=== PATIENT | male | born 1950 | race Caucasian/White ===

== ENCOUNTER → 2018-01-13 12:50 | Outpatient (CLI) | payer MEDICARE, OTHER, SELFPAY ==
--- NOTE | 2018-01-13 13:00 | VDLE_ITS ---
Reason For Study: PAIN Procedure LEFT Exam performed in department. GSV is normal. A preliminary report was called and/or CFV is compressible, spontaneous, phasic, faxed to DR STOVER. competent, and demonstrates normal augmentation. FV is compressible, spontaneous, phasic, competent and demonstrates normal augmentation. POP V is compressible, spontaneous, phasic, competent and demonstrates normal augmentation. T/P Trunk is compressible. PTV is compressible. LT PerV is compressible. There is a nonvascularized, nonechogenic structure measuring 1.8 x 1.3 cm noted in the popliteal region. Interpretation Summary Deep veins of the left lower extremity are patent and compressible segmentally. There is no evidence of left lower extremity deep vein thrombosis. Valvular competence appears intact within the proximal deep venous system on the left . The left greater saphenous vein appears patent and compressible segmentally. A non-vascular, hypoechoic structure is noted in the left popliteal space, measuring 1.8 cm x 1.3 cm. This probably represents a popliteal cyst. Clinical correlation is advised. Ordering Physician: Ashu Stover Referring Physician: Ashu Stover Performed By: Hannah Garcia, IDALMIS, RVT
== END ==
PROVIDERS: Family Provider Family Medicine; PCP Family Medicine; Visit Provider Family Medicine
DX: M79.605 Pain in left leg (principal)
CPT/HCPCS: 93971

== ENCOUNTER → 2021-01-13 14:18 | Outpatient (CLI) | payer MEDICARE, OTHER, SELFPAY ==
[2016-10-21 18:46] VITALS: BMI 29.2
== END ==
PROVIDERS: PCP Preventive Medicine Occupational Medicine; Referring Provider Preventive Medicine Occupational Medicine; Visit Provider Preventive Medicine Occupational Medicine
DX: U07.1 COVID-19 (principal)
CPT/HCPCS: 36415; 86769

== ENCOUNTER 2021-05-07 08:30 | Outpatient (RCR) | payer MEDICARE, OTHER, SELFPAY ==
--- NOTE | 2021-03-07 13:33 | HP.PTEVAL_ITS ---
Patient's Visit Information FLORENCE WESTON is a 70 year old M referred to Physical Therapy by Dr. Attila Lewis MD with a diagnosis of S/P POST LAMINECTOMY WITH SPINAL FUSION ,FOOT DROP LEFT. Date of Evaluation: 03/07/21 Physical Therapist: Liu Chavez, PT, Cert MDT, OCS - Visit Plan Frequency: 1x/Week Duration: 4 Weeks Plan: PT INTERVENTIONS ANKLE STRENGTHENING ,FLEAXABLITY ,CORE STRENGTH ,LEFT QUADS/HAMS/HIP STRENGTHENING ,AND NMES - Subjective This 70 y/o male presents to physical therapy with s/p laminectomy with spinal spinal fusion with foot drop. Patient had s/p laminectomy with fusion L4-[address] Eng at [facility]. Patient developed foot drop left placed in AFO May last year. Patient prior to surgery had left leg pain for ~ 6 months. MRI showed stenosis. Patient has had prior PT [place] and [place] [facility] . Focused on strengthening and balance. Return seen DR Eng recommended PT and nerve conduction. Patient reports some back pain and no leg pain. Patient has paresthesia left foot, absent light touch dorsal aspect . Aggravating factors lumbar morning, walking and standing numbness is unaffected. Alleviating factors rest ,moving. Patient pain affects sleeping. Bowel/bladder-.Coughing sneezing -. Patient is very active nd hobbies. Patient symptoms affects ADL's and job demands along with hobbies. No MEDS ,x-rays looked . VOCATION: . SOCIAL: Rental properties - Pain Bilateral Back Pain Intensity (Out of 10): 2 Pain Intensity Range: 10 - Objective POSTURE: mild forward posture AFO LEFT. PALAPTION: unremarkable. NEURO: C/O paresthesia/tingling right foot .absent light touch ,reflexes L3-4,L4-5,L5-S1 1/3. GAIT: reciprocal pattern with foot drop left side with AFO. LUMBAR ROM : flexion min loss ,extension mod loss, side glides mod loss. FLEXABLITY: hams WFL. MMT: left quads 4-/5,hams 4/5 ,hip flexion 4-/5,ankle dorsiflexion 2/3,plantarflexion 3/5,eversion 2/3,inversion 2+/5 - Special Tests L/S Slump test left side: Negative L/S Slump test right side: Negative L/S Left Straight Leg Raise: Negative L/S Right Straight Leg Raise: Negative - Balance/Special Test Scores Oswestry Low Back Score: 21 - Goals Goal 1:: I with HEP for strengthening Goal Time Frame: 4-6 Weeks Goal 2:: Improve gait with increase dorsiflexion community distances Goal Time Frame: 4-6 Weeks Goal 3:: Patient increase strength ankle 3/5 grade and quads 4/5 to improve gait Goal Time Frame: 4-6 Weeks Goal 4:: Patient to increase back owesrty score by 5 points to improve function Goal Time Frame: 4-6 Weeks - Rehabilitation Potential Physical Therapy Diagnosis: This patient under s/p laminectomy with fusion L4-5 fusion last Jan. with major issue weakness ankle and quads with AFO left impairs function and gait along with core weakness this benefit from skilled PT Rehabilitation Potential: Good - Anticipated Interventions Patient/Client Instruction: Educate patient on: Condition, Plan of Care For the Purpose of:: To decrease pain, To increase ROM, To improve muscle performance and motor function, To improve ability to perform ADL's, To increase tolerance to activity/condition/position, To improve ability of physical actions for home/community/work/leisure, To improve health of tissue, To decrease soft tissue restriction, To increase flexibility/ROM, To improve self management Therapeutic Exercise to Include: Strength training, Endurance training, Balance training, Postural training, Flexibilty training, Gait and locomotor training, Dynamic Lumbar Stabilization For the Purpose of:: To decrease pain, To increase ROM, To improve muscle performance and motor function, To improve ability to perform ADL's, To increase tolerance to activity/condition/position, To improve ability of physical actions for home/community/work/leisure, To improve health of tissue, To decrease soft tissue restriction, To increase flexibility/ROM, To prevent re-injury Functional electric stimulation: Yes Cryotherapy (ice pack, ice massage): Yes For the Purpose of:: To decrease pain, To increase ROM, To improve muscle performance and motor function, To increase tolerance to activity/condition/position, To improve ability of physical actions for home/community/work/leisure, To improve gait and locomotor functions Thank you for the opportunity to evaluate your patient. For Medicare and Medicare HMO plans, please review the plan of care and approve it. It will need to be FAXED BACK to us at [phone] for Medicare purposes. For Medicare only, by signing this I certify the plan of care. Please let me know if there are questions or concerns regarding this plan of care. Physician Signature: Date:
--- NOTE | 2021-05-07 09:15 | HP.PTDCSUM ---
It has been my pleasure to treat FLORENCE WESTON referred by Dr. Attila Lewis MD, with the diagnosis of S/P POST LAMINECTOMY WITH SPINAL FUSION ,FOOT DROP LEFT for a total of 9 visit(s). Discharge Date: 05/07/21 Please see the following information for a summary of their discharge status. Subjective: Doing okay not much change Bilateral Back Pain Intensity (Out of 10): 3 % Improvement: 25 Objective/Function: GAIT: RECIPROCAL PATTERN MILD FOOT SLAP. MMT: quads/hams 4/5,hip flexion 4-/5,anterior tibials 1/5. LUMBAR ROM: flexion min loss ,extension mod loss Goal 1:: I with HEP for strengthening Goal 2:: Improve gait with increase dorsiflexion community distances Goal 3:: Patient increase strength ankle 3/5 grade and quads 4/5 to improve gait Goal 4:: Patient to increase back owesrty score by 5 points to improve function Plan: D/C Discharge Comments: HEP If there are questions or concerns regarding this patient's physical therapy, please feel free to call me at [phone]. Thank you for the referral of this patient. Sincerely, Liu Chavez, PT, Cert MDT, OCS Balance/Gait/Functional tests - Balance/Special Test Scores Oswestry Low Back Score: 8
== END 2021-05-07 19:00 | disposition home or self-care (01) ==
LOC: PT 08:30
PROVIDERS: PCP Preventive Medicine Occupational Medicine; Referring Provider Orthopaedic Surgery Orthopaedic Surgery of the Spine; Visit Provider Orthopaedic Surgery Orthopaedic Surgery of the Spine
DX: M21.372 Foot drop, left foot (principal); Z98.1 Arthrodesis status
CPT/HCPCS: 97110; 97162

== ENCOUNTER → 2022-04-21 | Outpatient (CLI) | payer MEDICARE, OTHER, SELFPAY ==
--- NOTE | 2022-04-21 06:34 | MRI_ITS ---
STUDY: MRI BRAIN WITH AND WITHOUT CONTRAST (ATTENTION INTERNAL AUDITORY CANALS - I.A.C.''s) REASON FOR EXAM: Male, 71 years old. HEARING LOSS- BILAT TECHNIQUE: Standardized multiplanar fat and water weighted pulse sequences were obtained. ml of 19ml Clariscan contrast material was administered intravenously for the contrast portion of the examination. COMPARISON: None. FINDINGS: Normal bilateral temporal bones. Normal bilateral internal auditory canals. There is no demonstrated intracanalicular or cisternal vestibular schwannoma (acoustic neuroma). There is no enhancement of the bilateral VIIth or VIIIth cranial nerves. Normal bilateral cochlea, vestibules and semicircular canals. No visualized MONDINI''s malformation or cerebellar pontine angle mass or cyst. No demonstrated nerve root enlargement or nodularity within the IACs. There is mild cerebral atrophy with widening of the extra-axial spaces and ventricular dilatation. There are a limited number of small white matter hyperintensities, distributed throughout the deep white matter tracts of the cerebral hemispheres, consistent with mild chronic white matter ischemic changes. There is no evidence for recent intracranial ischemia or other cause of cytotoxic edema on diffusion weighted imaging (DWI). Normal T2* images of the brain without demonstrated susceptibility artifact. There is no demonstrated hemosiderin stain. There are no demyelinating plagues of the supratentorial brain, brainstem or cerebellum. There are no findings suspicious for multiple sclerosis (MS). Normal bilateral basal ganglia. Normal thalami. Normal flow voids within the major intracranial circulation suggesting patency by spin echo criteria. Normal venous enhancement. There is no enhancing intra-axial or extra-axial abnormality. No brain parenchymal lesions or abnormal enhancement is seen. No abnormal thickening or enhancement of meninges or dura is demonstrated on the current study. There is no extra-axial fluid accumulation. Normal sella turcica, pituitary gland, infundibular stalk, optic chiasm and hypothalamus. Normal tectal plate and pineal gland. Normal midbrain, mita and medulla. Normal cerebellum. Normal basal cisterns. No demonstrated orbital abnormality, within the constraints of a routine brain study. Normal visualized paranasal sinuses. Normal calvarium and skull base. Normal visualized soft tissue structures. Normal visualized upper cervical spine. MRI/Brain W/WO Contrast IMPRESSION: 1. Normal unenhanced and enhanced MRI of the bilateral internal auditory canals (I.A.C''s). 2. Involutional and minor chronic ischemic changes of the brain, as described above. Electronically Signed: Juan C Pendleton MD at 15:25 EST ,
[2022-04-21 07:05] LABS: EGFR FINGERSTICK > 60.0000 mL/min (>60)
== END | disposition home or self-care (01) ==
PROVIDERS: PCP Preventive Medicine Occupational Medicine; Referring Provider Otolaryngology; Visit Provider Otolaryngology
DX: H91.93 Unspecified hearing loss, bilateral (principal)
CPT/HCPCS: 70553; A9575

== ENCOUNTER → 2023-02-10 | Outpatient (CLI) | payer MEDICARE, OTHER, SELFPAY ==
--- NOTE | 2023-02-10 12:17 | EKG12_ITS ---
Test Reason : PRE OP Blood Pressure : / mmHG Vent. Rate : 058 BPM Atrial Rate : 058 BPM P-R Int : 160 ms QRS Dur : 094 ms QT Int : 432 ms P-R-T Axes : 065 -12 061 degrees QTc Int : 424 ms Sinus bradycardia with Premature atrial complexes Otherwise normal ECG Confirmed by MARIANELA FARAH, GERMAN ([id number]), purchase request editor MEDARDO ELLIOTT ([id number]) on 02/12/2023 11:38:29 AM Referred By: Romie Irene Confirmed By:VITALY BEAR MD
[2023-02-10 13:15] LABS: Hematocrit 33.5 % (40-54); Hemoglobin 10.5 g/dL (13.0-16.5); Mean Corp Hgb Conc 31.3 g/dL (32-36); Mean Corpuscular Hgb 30.1 pg (27.0-32.0); Mean Platelet Vol. 10.5 fl (6.2-12.0); Platelet Count 267 K/mm3 (150-450); RBC Distribution Width CV 13.9 % (11.6-14.6); RBC Distribution Width SD 49.1 fl (35.1-43.9); Red Blood Count 3.49 M/mm3 (4.6-6.2); White Blood Count 4.2 K/mm3 (4.4-11.0)
[2023-02-10 13:44] LABS: Anion Gap 4 (5-15); BUN 35 mg/dL (7-18); BUN/Creat Ratio 23.6 RATIO (10-20); Calcium,Total 8.8 mg/dL (8.5-10.1); Chloride 107 mmol/L (98-107); Creatinine, Serum 1.48 mg/dL (0.70-1.30); EST Glomerular Filtration Rate 49 mL/min (>60); Est Glom Filt Rate - Afr Amer 60 mL/min (>60); Glucose 135 mg/dL (74-106); Sodium Level 138 mmol/L (136-145)
== END | disposition home or self-care (01) ==
LOC: PSN 12:17
PROVIDERS: PCP Preventive Medicine Occupational Medicine; Referring Provider Otolaryngology; Visit Provider Otolaryngology
DX: Z01.810 Encounter for preprocedural cardiovascular examination (principal); Z01.812 Encounter for preprocedural laboratory examination
CPT/HCPCS: 36415; 80048; 85027; 93005

== ENCOUNTER 2023-12-05 17:09 | Emergency (ER) | payer MEDICARE, OTHER, SELFPAY ==
[2023-12-05 17:10] VITALS: BP 152/60; PULSE 67; RESP 15; TEMP 36.7; O2SAT 100; BMI 28.7
--- NOTE | 2023-12-05 18:06 | CT_ITS ---
We are attempting to reach an attending provider to discuss findings. An addendum with communication details will be sent when the communication is complete. STUDY: CT BRAIN WITHOUT CONTRAST REASON FOR EXAM: Male, 73 years old. headache Individualized dose optimization techniques were used for this CT. TECHNIQUE: Transaxial CT imaging of the brain was performed without administration of intravenous contrast material. COMPARISON: 04.21.22 MRI FINDINGS: There are calcifications around the carotid artery. These are noted in the cavernous carotid arteries. Normal calvarium. Normal soft tissues. There is mild cerebral atrophy with widening of the extra-axial spaces and ventricular dilatation. There are areas of decreased attenuation within the white matter tracts of the supratentorial brain, consistent with microvascular disease changes. Normal basal ganglia and thalami. Normal brainstem. There is mild cerebellar atrophy. Right cerebral subdural hematoma measuring 22 mm in greatest width. 11 mm right to left midline shift. Hyperdense fluid along the tentorium cerebelli suggesting blood. There are no findings of an acute ischemic infarction. Normal visualized paranasal sinuses. CT/Brain/Head without Contrast IMPRESSION: Right cerebral subdural hematoma and blood along the tentorium cerebelli. Electronically Signed: Tru Christianson MD at 19:04 EDT ,
--- NOTE | 2023-12-05 18:07 | EDS_ITS ---
HPI History of Present Illness Chief Complaint: Headache Informant: patient Onset/Context/Timing Onset: Days Context: Gradual Timing: Continuous Quality -Headache: Negative for Similar Prior Headaches Current Severity: Mild Maximum Severity: Moderate Associated Symptoms/Injury Associated Symptoms: Negative for Fever, Nausea, Vomiting, Sore Throat, Sinus Pressure, Numbness, Tingling, Preceding Aura, Visual Changes, Blurred Vision, Photophobia or Visual Loss Injury - OCHOA: Negative for Direct Trauma, Fall or Assault Narrative Narrative: 73-year-old male history diabetes, renal insufficiency anemia. Today headache for about a week. Says been trying to get a lot of things done at home and with rentals because he will be going out of town. He said he has had a dull headache is basically throughout his entire head for a week. He is tried Tylenol, ibuprofen and Aleve without any significant relief. He is not on blood thinners. He denies any significant sinus congestion. No head trauma or falls. No fever or neck pain. He typically does not get headaches. Prior similar symptoms: No Recent Illness/Hospitalization: No [facility] Home Medications ?Medication ?Instructions ?Recorded ?Last Taken ?Type aspirin 81 mg chewable tablet 81 mg PO DAILY 10/21/16 Unknown History canagliflozin 300 mg tablet 300 mg PO DAILY 10/21/16 Unknown History (Invokana) enalapril maleate 10 mg tablet 10 mg PO DAILY 10/21/16 Unknown History metformin 1,000 mg tablet 1,000 mg PO BIDCM 10/21/16 Unknown History pioglitazone 30 mg tablet 30 mg PO DAILY 10/21/16 Unknown History repaglinide 2 mg tablet 2 mg PO BID 10/21/16 Unknown History simvastatin 20 mg tablet 20 mg PO QHS 10/21/16 Unknown History Allergy/AdvReac Type Severity Reaction Status Date / Time No Known Allergies Allergy Verified 12/05/23 17:12 Social History Smoking Status: Never smoker ROS ROS ED ROS Narrative Headache. Denies nausea, vomiting, diarrhea. Denies fever. Review of Systems ROS Unobtainable: Denies due to encephalopathy Constitutional Constitutional ED: Denies chills or fever(s) Eyes Eyes: Denies blurry vision Cardiovascular Cardiovascular: Denies chest pain Respiratory/Chest Respiratory/Chest: Denies cough or dyspnea Gastrointestinal Gastrointestinal: Denies abdominal pain, nausea or vomiting Genitourinary Genitourinary ED: Denies dysuria or hematuria Musculoskeletal Musculoskeletal: Denies arthralgias Integumentary Denies abscess Neurologic Neurologic: Reports headache(s); Denies paresthesias or weakness Psychiatric Psychiatric: Denies anxiety or depression Endocrine Endocrinology: Denies polydipsia Hematologic/Lymphatic Hematologic/Lymphatic: Denies easy bleeding Allergic/Immunologic Allergic/Immunologic ED: Denies mouth swelling, tongue swelling or urticaria EXAM Physical Exam Narrative Exam Narrative: Well-appearing 73-year-old male. Vital signs stable afebrile. Pulse ox 9% room air no signs hypoxia. H EENT exam pupils are reactive to light. Extra motions are intact. No facial droop. Normal speech. No trauma. No tenderness. Neck nontender no lymphadenopathy. No meningismus. Lungs clear to auscultation bilateral. Heart regular rate and rhythm no murmur. Abdomen soft nontender. Moving all 4 extremities. 5-5 mud analysis well logging captain strength. Dorsi plantarflexion intact. Fingertip to nose within normal limits. Neurologic exam normal. NIH 0. He is awake and alert. Answering questions following commands. Const Vital Signs: 12/05/23 17:10 12/05/23 19:10 12/05/23 21:00 Temperature 98.1 F Temperature Source Temporal Pulse Rate 67 78 71 Respiratory Rate 15 17 17 Blood Pressure 152/60 H 173/71 H Blood Pressure Mean 90 105 Pulse Ox 100 100 99 Oxygen Delivery Method Room Air Room Air Room Air Positive well nourished and well developed; Negative for obese, cachectic, contractures or unkempt General Appearance ED: well developed and NAD; Negative for unkempt, cachectic, contractures, cyanotic, diaphoretic or pallor Nutritional Appearance: Negative for cachectic or obese HEENT Reports normocephalic and moist mucous membranes atraumatic; Negative for trauma, tenderness, temporal artery tenderness or vesicular rash Face and Sinus: Negative for sinus tenderness Eyes PERRL and EOMs intact bilaterally General Eye ED: Negative for pale conjunctiva or scleral icterus Neck no lymphadenopathy, supple, no meningeal signs and no JVD General: Negative for tenderness Resp normal respiratory effort and clear to auscultation bilaterally Effort and Inspection: Negative for retractions Auscultation: Negative for rales, rhonchi, wheezes or diminished lung sounds Cardio regular rate, regular rhythm, S1 normal heart sound, S2 normal heart sound and no murmurs Rate: Negative for bradycardia or tachycardic Rhythm: Negative for abnormal rhythm GI non-tender and non-distended Auscultation: normoactive bowel sounds Palpation: soft; Negative for firm, tender, guarding or rigid Back/Spine no CVA tenderness General Back: Negative for CVA tenderness Cervical Spine: Negative for cervical spine tenderness Thoracic Spine / Upper Back: Negative for thoracic spinal tenderness Lumbar Spine / Lower Back: Negative for lumbar spinal tenderness Extremity normal to inspection and full ROM General Extremety ED: Negative for edema or tenderness General Extremity: Negative for edema Neuro oriented x3 and CN's II-XII intact bilaterally Sensorium / Orientation: awake, alert, oriented to person, oriented to place and oriented to time; Negative for orientation impaired, lethargic or stuporous Coordination / Balance: [id number] test normal Speech: speech normal Motor Exam: strength 5/5 throughout Psych mental status grossly normal Appearance: Negative for unkempt Attitude: No agitated Mood & Affect: Negative for depressed, anxious or tearful Skin General Skin Exam: Negative for jaundice or pallor Lesions: no lesions Rashes: no rashes Trauma: Negative for abrasion MDM MDM MDM Narrative Medical decision making narrative: 73-year-old male complaining of a weeklong worth of a headache. Typically does not get headaches. No fall or trauma. No blood thinners. Neurologic exam lying in bed is normal. NIH 0. CAT scan to be obtained. He has had a history of diabetes and renal insufficiency I will check some screening labs. Will treat with IV fluids. Currently he says the headache is mild he does not need anything for pain. He is not having any nausea. Repeat exam patient did have a fall a month ago. I think he has an acute on chronic subdural. Currently he is stable. I spoke to both he and his . I am working on transfer him to go to [facility]. Currently his exam is unchanged. His neurologic exam remains normal in bed. I have not attempted to walk him. History & Record Review Discussion w/independent historian: Patient and Family Additional record(s) reviewed:: Prior inpatient record, Prior outpatient record, Prior ED visit, Prior labs, No prior records and Other Lab Data Attestation: I reviewed the patient's lab results. Lab results narrative: CBC shows a white count 8.2. H&H 10.5 and 34. Platelets 253. PT, INR and PTT are normal at 13, 1 and 29. Electrolytes are unremarkable. Gap 5. BUN of 33 creatinine 1.37. Glucose 214. CAT scan of the brain shows acute on chronic right cerebral subdural hematoma with blood along the tentorium of the cerebelli. There is right to left shift. Labs: Laboratory Results - last 24 hr 12/05/23 12/05/23 18:27 18:59 WBC 8.2 RBC 3.55 L Hgb 10.5 L Hct 34.0 L MCV 95.8 H MCH 29.6 MCHC 30.9 L RDW Std Deviation 49.1 H RDW Coeff of Nereida 13.9 Plt Count 253 MPV 10.3 PT 13.5 INR 1.0 APTT 29.5 Sodium 137 Potassium 4.8 Chloride 107 Carbon Dioxide 25.0 Anion Gap 5 BUN 33 H Creatinine 1.37 H Estim Creat Clear Calc 53.59 Est GFR (MDRD) Af Amer 65 Est GFR (MDRD) Non-Af 54 L BUN/Creatinine Ratio 24.1 H Glucose 214 H Calcium 8.4 L Radiography Diagnostic Testing: Clinical Impression(s) from Imaging Studies Brain CT 12/05/23 18:06 IMPRESSION: Right cerebral subdural hematoma and blood along the tentorium cerebelli. Electronically Signed: Tru Christianson MD at 19:04 EDT , ADDENDUM: 12/05/23 1917 IMPRESSION: Right cerebral subdural hematoma and blood along the tentorium cerebelli. N.B. : The above Results were Read Back by Tru Christianson MD to Geoff Wallace MD, and understanding confirmed on 12/05/2023 19:10:47 (ET). Electronically Signed: Tru Christianson MD at 19:04 EDT , Critical Care Time Critical Care Time: Yes Critical care time (excluding procedures): 30-74 minutes, Including time spent:, Discussing w/Patient &/or Family/Putty Maker, Discussing w/Consultants, Arranging Admission or Transfer, Performing Direct Patient Care at Bedside and - (35 min) Discharge Plan Triage Chief Complaint: Headache ED Provider: Geoff Wallace Dx/Rx/DC Orders Clinical Impression: Acute on chronic intracranial subdural hematoma, Headache, Chronic anemia, Chronic kidney insufficiency, History of diabetes mellitus Prescriptions: No Action repaglinide 2 MG tablet 2 mg PO BID Patient Comments: enalapril maleate 10 MG tablet 10 mg PO DAILY simvastatin 20 MG tablet 20 mg PO QHS metformin 1,000 MG tablet 1,000 mg PO BIDCM aspirin 81 MG tablet,chewable 81 mg PO DAILY pioglitazone 30 MG tablet 30 mg PO DAILY canagliflozin [Invokana] 300 MG tablet 300 mg PO DAILY Patient Comments: Primary Care Provider: Gilson Borden Referrals: Gilson Borden DO [Primary Care Provider] - Print Language: Polish Disposition Disposition: Acute Care Hospital
[2023-12-05] MEDS: 0.9% Normal Saline (1000mL) 1,000 ML 1000 ML IV (18:32)
[2023-12-05 18:34] LABS: Hemoglobin 10.5 g/dL (13.0-16.5); Mean Corp Hgb Conc 30.9 g/dL (32-36); Mean Corpuscular Hgb 29.6 pg (27.0-32.0); Mean Corpuscular Volume 95.8 fL (80-94); Mean Platelet Vol. 10.3 fl (6.2-12.0); Platelet Count 253 K/mm3 (150-450); RBC Distribution Width CV 13.9 % (11.6-14.6); RBC Distribution Width SD 49.1 fl (35.1-43.9); Red Blood Count 3.55 M/mm3 (4.6-6.2); White Blood Count 8.2 K/mm3 (4.4-11.0)
[2023-12-05 18:47] LABS: Anion Gap 5 (5-15); BUN 33 mg/dL (7-18); BUN/Creat Ratio 24.1 RATIO (10-20); Calcium,Total 8.4 mg/dL (8.5-10.1); Chloride 107 mmol/L (98-107); Creatinine, Serum 1.37 mg/dL (0.70-1.30); EST Glomerular Filtration Rate 54 mL/min (>60); Est Glom Filt Rate - Afr Amer 65 mL/min (>60); Estimated Creatinine Clearance 53.59 ml/min; Glucose 214 mg/dL (74-106); Potassium 4.8 mmol/L (3.5-5.1); Sodium Level 137 mmol/L (136-145)
[2023-12-05 19:10] VITALS: BP 173/71; PULSE 78; RESP 17; O2SAT 100
[2023-12-05 19:29] LABS: Prothrombin Time (Protime)PT. 13.5 SECONDS (11.7-14.9)
[2023-12-05 19:30] LABS: Partial Thromboplast Time 29.5 Seconds (24.1-36.2)
[2023-12-05 21:00] VITALS: PULSE 71; RESP 17; O2SAT 99
[2023-12-05 22:07] VITALS: BP 171/75; PULSE 75; RESP 12; O2SAT 99
[2023-12-05 23:03] VITALS: BP 171/75; PULSE 75; RESP 12; TEMP 36.1; O2SAT 99
--- NOTE | 2023-12-05 23:11 | ED.RN ---
Nurse to nurse report called to Neuro ICU to nurse YUVAL Darnell.
== END 2023-12-05 23:06 | disposition short-term general hospital (02) ==
PROVIDERS: Emergency Provider Emergency Medicine; PCP Preventive Medicine Occupational Medicine; Visit Provider Emergency Medicine
DX: S06.5X0A Traumatic subdural hemorrhage without loss of consciousness, initial encounter (principal); E11.22 Type 2 diabetes mellitus with diabetic chronic kidney disease; N18.9 Chronic kidney disease, unspecified; D64.9 Anemia, unspecified; Z79.82 Long term (current) use of aspirin; Z79.84 Long term (current) use of oral hypoglycemic drugs; Z79.899 Other long term (current) drug therapy
CPT/HCPCS: 70450; 80048; 85027; 85610; 85730; 96360; 99283; J7030; A4216

== ENCOUNTER 2024-02-07 08:58 | Emergency (ER) | payer MEDICARE, OTHER, SELFPAY ==
[2024-02-07] VITALS (7 sets, daily range): BP systolic 113–174; BP diastolic 61–92; PULSE 55–69; RESP 16–18; TEMP 36–36.4; O2SAT 94–100; BMI 29.0
--- NOTE | 2024-02-07 09:30 | CT_ITS ---
STUDY: CT BRAIN WITHOUT CONTRAST REASON FOR EXAM: Male, 73 years old. Abrupt headache, recent subdural hematoma RADIATION DOSAGE (If Supplied By Facility): CTDIvol = ( 44.99 ) mGy, DLP = ( 829.85 ) mGycm TECHNIQUE: Transaxial CT imaging of the brain was performed without administration of intravenous contrast material. Individualized dose optimization techniques were used for this CT. COMPARISON: Comparison is made with prior study December 05, 2023. FINDINGS: Normal soft tissue structures. There is evidence of prior valerie hole involving the right posterior frontal and parietal bones. There is evidence of a small acute subdural hematoma overlying the right frontoparietal lobes. This has decreased in size as compared to prior study. No significant midline shift is seen. There is mild cerebral atrophy with widening of the extra-axial spaces and ventricular dilatation. Normal white matter tracts of the cerebral hemispheres. Normal basal ganglia and thalami. Normal brainstem. Normal cerebellum. There are no findings of an acute ischemic infarction. Normal visualized paranasal sinuses. CT/Brain/Head without Contrast IMPRESSION: Acute on chronic right subdural hematoma as described. This has decreased in size as compared to prior study. Electronically Signed: Javier Martino MD at 10:01 EDT ,
--- NOTE | 2024-02-07 11:48 | EX.ED.VIS.HA ---
HPI History of Present Illness Chief Complaint: Headache Detail of Chief Complaint: Acute global headache Informant: patient and spouse/S.O. Onset/Context/Timing Onset: Yesterday Context: Sudden Timing: Continuous Quality -Headache: Positive for Similar Prior Headaches (When diagnosed with history of acute on chronic subdural hematoma) Location: Global Current Severity: Moderate Maximum Severity: Moderate Worsened by: Nothing, patient did take NSAID Relieved by: Nothing Associated Symptoms/Injury Associated Symptoms: Positive for Nausea; Negative for Fever, Vomiting, Sore Throat, Sinus Pressure, Numbness, Tingling, Preceding Aura, Visual Changes, Blurred Vision, Photophobia or Visual Loss Narrative Narrative: Patient was seen December 04 and diagnosed with acute on chronic subdural hematoma. Patient presents because of abrupt onset headache. He denies double vision blurred vision loss of vision. It does report nausea. He is on no antiplatelet or anticoagulant. He apparently took ibuprofen for his pain. He denies redness ears decreased hearing. Denies paresthesia, anesthesia or motor weakness upper lower extremity. [place] problems with coordination or balance. Prior similar symptoms: Yes Recent Illness/Hospitalization: Yes [facility] Medical History Subdural hemorrhage Home Medications ?Medication ?Instructions ?Recorded ?Last Taken ?Type metformin 1,000 mg tablet 1,000 mg PO DAILY 10/21/16 Unknown History pioglitazone 30 mg tablet 45 mg PO DAILY 10/21/16 Unknown History amoxicillin 500 mg capsule 500 mg PO 4X/DAY 02/07/24 Unknown History insulin glargine 100 unit/mL (3 18 unit subcut DAILY 02/07/24 Unknown History mL) subcutaneous pen (Basaglar KwikPen U-100 Insulin) rosuvastatin 5 mg tablet 5 mg PO DAILY 02/07/24 Unknown History semaglutide 2 mg/dose (8 mg/3 mL) 2 mg subcut QWEEK 02/07/24 Unknown History subcutaneous pen injector (Ozempic) Allergy/AdvReac Type Severity Reaction Status Date / Time No Known Allergies Allergy Verified 02/07/24 08:59 Social History (Updated 02/07/24 @ 11:[address] Conor Zaidi MD) household members: spouse Smoking Status: Never smoker ROS ROS ED Constitutional Constitutional ED: Denies chills, fever(s), subjective, sweats or weight loss Eyes Eyes: Denies blurry vision, change in vision or diplopia ENT ENT ED: Denies ear pain, rhinorrhea or sore throat Cardiovascular Cardiovascular: Denies chest pain or palpitations Respiratory/Chest Respiratory/Chest: Denies cough, dyspnea or dyspnea on exertion Gastrointestinal Gastrointestinal: Reports nausea; Denies abdominal pain or vomiting Musculoskeletal Musculoskeletal: Denies arthralgias, back pain, myalgias or neck pain Integumentary Denies rash Neurologic Neurologic: Reports headache(s) and other Details: Detailed HPI narrative ; Denies paresthesias or weakness Endocrine Endocrinology: Denies polydipsia or polyphagia Hematologic/Lymphatic Hematologic/Lymphatic: Denies easy bleeding or easy bruising EXAM Physical Exam Const Vital Signs: 02/07/24 08:59 02/07/24 09:58 02/07/24 10:00 Temperature 96.8 F L Temperature Source Temporal Pulse Rate 55 L 59 L 59 L Respiratory Rate 16 18 16 Blood Pressure 158/65 H 174/70 H 164/75 H Blood Pressure Mean 96 104 104 Pulse Ox 100 95 98 Oxygen Delivery Method Room Air Room Air Room Air 02/07/24 11:00 02/07/24 12:00 02/07/24 13:00 Temperature Temperature Source Pulse Rate 59 L 62 62 Respiratory Rate 16 18 16 Blood Pressure 113/92 H 171/61 H 146/87 H Blood Pressure Mean 99 97 106 Pulse Ox 94 95 99 Oxygen Delivery Method Room Air Room Air Room Air Positive well nourished and well developed Constitutional Narrative: Patient appears uncomfortable. General Appearance ED: well developed; Negative for pallor HEENT Reports normocephalic and moist mucous membranes atraumatic; Negative for tenderness, temporal artery tenderness or vesicular rash Eyes PERRL and EOMs intact bilaterally Eyes Narrative: There is no nystagmus. There is no APD. Neck no lymphadenopathy, supple, no meningeal signs and no JVD Resp normal respiratory effort and clear to auscultation bilaterally Cardio regular rate, regular rhythm, S1 normal heart sound, S2 normal heart sound and no murmurs GI non-tender and non-distended Palpation: soft Back/Spine no CVA tenderness Extremity normal to inspection, full ROM and normal capillary refill General Extremety ED: Negative for edema General Extremity: Negative for edema Neuro oriented x3, CN's II-XII intact bilaterally and no sensory deficits noted [place] Coma Scale: document GCS findings Spontaneous Obeys Commands Oriented 15 Sensorium / Orientation: awake and alert Speech: speech normal Motor Exam: strength 5/5 throughout Comatose: other There is no clonus at the ankles. Equivocal Babinski signs left. Difficult to assess since patient withdrawals. Psych mental status grossly normal Skin General Skin Exam: elasticity normal and turgor normal; Negative for jaundice or pallor MDM MDM MDM Narrative Medical decision making narrative: Vascular headache versus intraparenchymal bleed versus recurrent subdural hematoma versus subarachnoid hemorrhage. CT was obtained. CT reveals an acute on chronic subdural hematoma. There is no shift. Lab Data Lab results narrative: Blood work reveals mild anemia. Electrolyte panel reveals elevated BUN/creatinine 36 and 1.48. Glucose slightly elevated 114. CO2 anion gap is normal. Labs: Laboratory Results - last 24 hr 02/07/24 02/07/24 09:20 12:36 WBC 4.9 RBC 3.10 L Hgb 9.2 L Hct 30.0 L MCV 96.8 H MCH 29.7 MCHC 30.7 L RDW Std Deviation 51.1 H RDW Coeff of Nereida 14.4 Plt Count 262 MPV 11.3 Immature Gran % (Auto) 0.200 Neut % (Auto) 77.4 H Lymph % (Auto) 11.3 L [place] % (Auto) 6.7 Eos % (Auto) 4.0 Baso % (Auto) 0.4 Absolute Neuts (auto) 3.8 Absolute Lymphs (auto) 0.56 L Nucleated RBC % 0 PT 12.9 INR 1.0 APTT 31.0 Sodium 140 Potassium 5.2 H Chloride 111 H Carbon Dioxide 26.0 Anion Gap 3 L BUN 36 H Creatinine 1.48 H Estim Creat Clear Calc 49.90 Est GFR (MDRD) Af Amer 60 Est GFR (MDRD) Non-Af 49 L BUN/Creatinine Ratio 24.3 H Glucose 115 H Calcium 8.8 Radiography Diagnostic Testing: Clinical Impression(s) from Imaging Studies Brain CT 02/07/24 09:30 IMPRESSION: Acute on chronic right subdural hematoma as described. This has decreased in size as compared to prior study. Electronically Signed: Javier Martino MD at 10:01 EDT , CT was independently reviewed and interpreted by me as acute subacute dural hematoma. There is no shift. Patient was made aware. Secondary was asked to contact [facility] Since he was transferred there December 04. Management Discussion w/another healthcare provider: Laborer Rags (Spoke with neurosurgeon at [facility] who is familiar with patient Dr.Daria Stuart. She requested images to be sent to [facility]. After she reviewed them she contacted Trudy the transfer nurse. After discussion with Trudy plan is to discharge to home a) Critical Care Time Critical Care Time: Yes Critical care time (excluding procedures): 30-74 minutes (33), Including time spent: (History, physical, documentation, review of prior records, review of prior images), Discussing w/Patient &/or Family/Steam Conditioning Operator (Discussion with family regarding results of CAT scan, discussion with the neurosurgeon who cared for him this past November. What her recommendations are) and Discussing w/Consultants (Consultation with transfer line and neurosurgeon [facility]) Discharge Plan Triage Chief Complaint: Headache ED Provider: Conor Zaidi Dx/Rx/DC Orders Clinical Impression: Acute subdural hematoma, Hypertension Prescriptions: No Action metformin 1,000 MG tablet 1,000 mg PO DAILY pioglitazone 30 MG tablet 45 mg PO DAILY Rx Instructions: orally daily; insulin glargine [Basaglar KwikPen U-100 Insulin] 100 unit/mL (3 mL) insulin pen 18 unit subcut DAILY Ozempic 2 mg/dose (8 mg/3 mL) pen injector 2 mg subcut QWEEK amoxicillin 500 mg capsule 500 mg PO 4X/DAY rosuvastatin 5 mg tablet 5 mg PO DAILY Primary Care Provider: Gilson Borden Referrals: Sera Stuart MD [Non-Staff] - As soon as possible Gilson Borden DO [Primary Care Provider] - Activity Restrictions/Additional Instructions: Call the neurosurgeons office once you leave. She will see you tomorrow. If your headache becomes worse return to the emergency department Print Language: Citizen Of [place] Disposition Disposition: Home, Self Care
[2024-02-07 12:01] LABS: Absolute Lymphocyte Count 0.56 X10^3/uL (0.83-4.51); Absolute Neutrophil Count 3.8 X10^3/uL (2.0-7.7); Basophil# 0.02 X10^3/uL; Basophil% 0.4 % (0-1); Hemoglobin 9.2 g/dL (13.0-16.5); Lymphocyte # 0.56 X10^3/ul (0.83-4.51); Lymphocyte % 11.3 % (19-41); Mean Corp Hgb Conc 30.7 g/dL (32-36); Mean Corpuscular Hgb 29.7 pg (27.0-32.0); Mean Corpuscular Volume 96.8 fL (80-94); Mean Platelet Vol. 11.3 fl (6.2-12.0); Monocyte# 0.33 X10^3/uL; Monocyte% 6.7 % (0-10); NRBC Flagged by Analyzer 0 % (0-5); Neutrophil # 3.82 X10^3/uL (2.7-7.7); Neutrophil % 77.4 % (47-70); POSITIVE DIFFERENTIAL YES; Platelet Count 262 K/mm3 (150-450); RBC Distribution Width CV 14.4 % (11.6-14.6); RBC Distribution Width SD 51.1 fl (35.1-43.9); White Blood Count 4.9 K/mm3 (4.4-11.0)
[2024-02-07 12:15] LABS: Prothrombin Time (Protime)PT. 12.9 SECONDS (11.7-14.9)
[2024-02-07 12:58] LABS: Anion Gap 3 (5-15); BUN 36 mg/dL (7-18); BUN/Creat Ratio 24.3 RATIO (10-20); Calcium,Total 8.8 mg/dL (8.5-10.1); Chloride 111 mmol/L (98-107); Creatinine, Serum 1.48 mg/dL (0.70-1.30); EST Glomerular Filtration Rate 49 mL/min (>60); Est Glom Filt Rate - Afr Amer 60 mL/min (>60); Glucose 115 mg/dL (74-106); Potassium 5.2 mmol/L (3.5-5.1); Sodium Level 140 mmol/L (136-145)
== END 2024-02-07 14:06 | disposition home or self-care (01) ==
PROVIDERS: Emergency Provider Emergency Medicine; PCP Preventive Medicine Occupational Medicine; Visit Provider Emergency Medicine
DX: I62.01 Nontraumatic acute subdural hemorrhage (principal); I62.02 Nontraumatic subacute subdural hemorrhage; Z79.4 Long term (current) use of insulin; I10 Essential (primary) hypertension; Z79.84 Long term (current) use of oral hypoglycemic drugs; Z79.85 Long-term (current) use of injectable non-insulin antidiabetic drugs; Z79.899 Other long term (current) drug therapy
CPT/HCPCS: 70450; 80048; 85025; 85610; 85730; 99284

== ENCOUNTER 2024-02-28 09:00 | Outpatient (RCR) | payer MEDICARE, OTHER, SELFPAY ==
--- NOTE | 2024-01-28 11:24 | HP.PTEVAL_ITS ---
Patient's Visit Information Visit Information Visit Information: FLORENCE WESTON is a 73 year old M referred to Physical Therapy by Dr. Sera Stuart MD with a diagnosis of subdural hemorrhage. Date of Evaluation: 01/28/24 Physical Therapist: CONCETTA Horan Visit Plan Frequency: 2x /Week Duration: 4 Weeks Plan: 2X/ week for 4 weeks for L hip and knee strength, core strength, balance, gait mechanics, functional activities such as curb steps, steps with HEP Subjective Subjective: Pt had a brain bleed about a month ago. He was at home and he stepped across the hitch on the trailers and his L foot caught and he went down on his face. He was conscious. He did not go for treatment. Then he started to get OCHOA and never got OCHOA. 17 days later he was found to have a brain bleed. He had 2 surgeries up at [place]. Those surgeries about 5 weeks ago. Now he is having trouble getting released from the Dr. They are afraid of him having a s eizure (he has never had a seizure). He is not allowed to drive and he can only lift 25#. He has another CT scan in 3 weeks. The bleeding stopped with the second surgery. There was still a little bit of blood around the brain still on the CT scan. He has noticed any arm and leg weakness other than he is not allowed to do anything. He reports that his balance is fine. He had a back surgery years ago and he has drop foot and wears an AFO. He fell last week again... he stepped in a hole with the L foot and did not hit his head. Objective Objective: Gait: Walks with decrease stance time on the L LE, increase signs of weakness and steppage gait, with AFO on Stairs: up and down recip with decrease drive through the L LE and some signs of weakness LE MMT: R hip flex 18.5 and l 15.5 R knee ext 35.6 and L 34.5 R knee flex 17,5 and L 12.4 R DF 21.1 and L 7 R hip abd 15.1 and L 12.1 R hip ext 12.2 and L 13 FGA: 18 Sit to stand: able to get up without UE support CATSIB 120/120 Balance/Special Test Scores Functional Gait Assessment Score: 18 % Disability: 40.0000 Lower Extremity Functional Score: 59 Goals Goal 1:: I HEP Goal Time Frame: 6-8 Weeks Goal 2:: Increase LE strength (at the time of the eval: LE MMT: R hip flex 18.5 and l 15.5 R knee ext 35.6 and L 34.5 R knee flex 17,5 and L 12.4 R DF 21.1 and L 7 R hip abd 15.1 and L 12.1 R hip ext 12.2 and L 13) Goal Time Frame: 6-8 Weeks Goal 3:: Increase balance (score was 18 on eval) Goal Time Frame: 6-8 Weeks Rehabilitation Potential Rehabilitation Potential: Good Anticipated Interventions Patient/Client Instruction: Educate patient on: Condition and Plan of Care For the Purpose of:: To improve nutrient delivery to tissue, To improve muscle performance and motor function, To improve ability to perform ADL's, To increase tolerance to activity/condition/position, To improve performance and independence with ADL's, To improve gait and locomotor functions and To improve safety with gait Therapeutic Exercise to Include: Strength training, Endurance training, Balance training, Postural training, Flexibilty training, Gait and locomotor training, Passive ROM, Active ROM and Dynamic Lumbar Stabilization For the Purpose of:: To improve nutrient delivery to tissue, To improve muscle performance and motor function, To improve ability to perform ADL's, To increase tolerance to activity/condition/position, To improve performance and independence with ADL's, To decrease level of supervision to perform tasks, To improve gait and locomotor functions, To improve health of tissue, To increase flexibility/ROM, To improve endurance, To improve balance and To improve safety with gait Functional Training to Include: Gait training For the Purpose of:: To improve gait and locomotor functions and To improve safety with gait Text: Thank you for the opportunity to evaluate your patient. For Medicare and Medicare HMO plans, please review the plan of care and approve it. It will need to be FAXED BACK to us at [phone] for Medicare purposes. For Medicare only, by signing this I certify the plan of care. Please let me know if there are questions or concerns regarding this plan of care. Physician Signature: Date:
--- NOTE | 2024-02-28 09:20 | HP.PTDCSUM ---
Discharge Summary D/C summary: It has been my pleasure to treat FLORENCE WESTON referred by Dr. Sera Stuart MD, with the diagnosis of subdural hemorrhage for a total of 8 visit(s). Discharge Date: 02/28/24 Please see the following information for a summary of their discharge status. Subjective Subjective: Pt will start at [facility] and do his exercises there where he is already a member. He reports that he is doing fine and having no issues other than his drop foot. He was release back to driving and will see the Dr for a re-check in 2 months. Pain Headache: Pain Intensity (Out of 10): 0 LBP: Pain Intensity (Out of 10): 2 Overall Improvement % Improvement: 20 Objective Objective/Function: LE MMT: R hip flex 19.1 and l 17.8 R knee ext 35.8 and L 34.5 R knee flex 18.8 and L 19.7 R DF 23.3 and L 7.9 R hip abd 17.7 and L 17.6 R hip ext 16.5 and L 18.1 FGA 24 Goals Goal 1:: I HEP Goal Progress: Goal Met Goal 2:: Increase LE strength (at the time of the eval: LE MMT: R hip flex 18.5 and l 15.5 R knee ext 35.6 and L 34.5 R knee flex 17,5 and L 12.4 R DF 21.1 and L 7 R hip abd 15.1 and L 12.1 R hip ext 12.2 and L 13) Goal Progress: Goal Met Goal 3:: Increase balance (score was 18 on eval) Goal Progress: Goal Met Plan Plan: DC PT to indep exercise program at [facility]. D/C Information Discharge Comments: DC PT to HEP d/c sentence: If there are questions or concerns regarding this patient's physical therapy, please feel free to call me at [phone]. Thank you for the referral of this patient. Sincerely, Kathleen Francisco, MPT Balance/Gait/Functional tests Balance/Special Test Scores Functional Gait Assessment Score: 24 % Disability: 20.0000 Lower Extremity Functional Score: 52 Improvement % Improvement: 20
== END 2024-02-28 19:00 | disposition home or self-care (01) ==
LOC: PT 09:00
PROVIDERS: PCP Preventive Medicine Occupational Medicine; Referring Provider Neurological Surgery; Visit Provider Neurological Surgery
DX: I62.00 Nontraumatic subdural hemorrhage, unspecified (principal)
CPT/HCPCS: 97110; 97162; 97530

== ENCOUNTER 2025-04-27 08:00 | Outpatient (RCR) | payer MEDICARE, OTHER, SELFPAY ==
--- NOTE | 2025-03-21 09:09 | HP.OTEVAL_ITS ---
Patient's Visit Information Visit Information Visit Information: FLORENCE WESTON is a 74 year old M, referred to Occupational Therapy by KRISHNA Antonio, with a diagnosis of left 3/4 & 5th metacarpal fx. Date of Evaluation: 03/20/25 Occupational Therapist: Lyudmila Sanchez, DANY/Buddy, CHT Subjective Subjective: This 74 year old male was seen for OT eval with dx of left hand fx. pt states he fx his left hand at the end of December. pt states he was in a brace for about 6 weeks and now has limited motion- and pain. pt is left handed pt states he had 4 weeks of Physical where he was given strength ex. pt states since he started PT he has noticed pain on the volar wrist and hand. pt reports frustration as he is very active and likes to make furniture or does a lot of woodworking and due to his dominate hand weakness and pain pt can not do this. Pt will leave for [place] in and hopes to get his hand back to his PLOF. Pain left hand: Current Pain Intensity: 3 Pain Intensity Range: 3 and 4 ROM ROM Comments: pt demo with slight limitation with left digit ext and this bothers him as he can not flatten his hand ( average limitations of PIP ext - 15*) pt states stiffness with his hand is more in the morning Strength Painter Spring: right 75# left 15# Lateral Pinch: right 16# left 10# Tripod Pinch: right 12# left 8# Strength Comments: pt demo with left dominate hand weakness pain limiting force of director of institutional giving strength Sensation Sensation Comments: denies Quick DASH-Disab of Arm,Shoulder& Hand Quick DASH Score: 47.7250 Goals Goal:ROM equal to unaffected hand: Yes Goal:Painter Spring/Pinch strength at least 75% of unaffected hand: Yes Goal:No pain with affected hand use: Yes Goal:Full use of affected hand in daily activities including work: Yes Rehabilitation General Assessment: pt arrives about 12 weeks following a left 3rd/4th and 5th metacarpal fx of left dominate hand. pt demo with limited ROM weakness and pain limiting pts IND with ADLS and IADLs. Pt would benefit from skilled OT services 1-2x week for 4 weeks to return pt to his PLOF. Today therapist ed. pt on dx and POC. demo understanding and agree to POC. Rehabilitation Potential: Good Anticipated Interventions Anticipated Interventions: A/AAROM/PROM, Strengthening, Modalities, Orthoses, Joint Protection/Energy Conservation, Ergonomic Education, Fine Motor Coord/Daniel and Home Program Visit Plan Frequency: 1-2x /Week Duration: 4 Weeks TEXT: Thank you for the opportunity to evaluate your patient. For Medicare and Medicare HMO plans, please review the plan of care and approve it. It will need to be FAXED BACK to us at [phone] for Medicare purposes. Please let me know if there are questions or concerns regarding this plan of care. Physician Signature: Date:
--- NOTE | 2025-04-10 10:53 | HP.OTREVAL ---
Re-Evaluation Intro: KRISHNA Antonio, It has been my pleasure to treat FLORENCE WESTON over the last 6 visits for left 3/4 & 5th metacarpal fx. Please see the progress note below for an update on the occupational therapy plan of care! Subjective Subjective: pt states feeling better pain is less still weakness and pain with tight traffic assistant/fist Objective Objective/Function: PIP extension was about -5 on all digits MP flexion: 80-90 PIP flexion: 90-100 40# left traffic assistant strength intrinsic of hand more flexible RF still tight but this is due to his Dupuytren's contracture vs fx. pts pain in flexor tendons with fisting did decrease and is painful now with light weight bearing. pt still demo with muscle weakness of UB- therapist has pt working with free wts for shoulder flex/abd. 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 Plan Plan Frequency: 1-2x /Week Duration: 4 Weeks Visits in this POC: 12 Plan: will see pt 1 more x this week and let him go on his own with HEP for 2 weeks and have him return to ensure he is progressing Goals Goals Patient Goals: Use Hand/Wrist/Arm Normally Again Goal:ROM equal to unaffected hand: Yes Goal:Concaving Machine Operator/Pinch strength at least 75% of unaffected hand: Yes Goal:No pain with affected hand use: Yes Goal:Full use of affected hand in daily activities including work: Yes Anticipated Interventions Anticipated Interventions Anticipated Interventions: A/AAROM/PROM, Strengthening, Modalities, Orthoses, Joint Protection/Energy Conservation, Ergonomic Education, Fine Motor Coord/Daniel and Home Program Re-Evaluation Ending Re-evaluation ending: Please do not hesitate to contact me at [phone] by phone or if you have questions or concerns regarding this new plan of care! Sincerely, DANY Perez/Buddy, RHETTT
--- NOTE | 2025-04-27 08:30 | HP.OTDCSUM ---
Discharge Summary D/C Summary: It has been my pleasure to treat FLORENCE WESTON under orders from KRISHNA Antonio, for the diagnosis of left 3/4 & 5th metacarpal fx for a total of 8 visit(s). Please see the following information for a summary of their discharge status. Overall Improvement % Improvement: 70 Objective Objective/Function: PIP extension was about -5 on all digits MP flexion: 80-90 PIP flexion: 90-100 left wrist 55/50 40# left inventory control/shipping receiving strength 14# left lateral pinch 10# tripod pinch intrinsic of hand more flexible Pt has returned to his woodworking but continues to have pain from time to time. pts flexor tendon pain has decreased and only bothers him if he uses his hand too much. pt at this time has agreed to cont. with UE strengthening with a HEP. pt agrees with D/c Goals Patient Goals: Use Hand/Wrist/Arm Normally Again Goal:ROM equal to unaffected hand: Yes Goal Progress: Goal Met Goal:Meat Specialist/Pinch strength at least 75% of unaffected hand: Yes Goal:No pain with affected hand use: Yes Goal:Full use of affected hand in daily activities including work: Yes Plan Plan: will see pt 1 more x this week and let him go on his own with HEP for 2 weeks and have him return to ensure he is progressing D/C Information Discharge Comments: pt made gains with return of his inventory control/shipping receiving strength and ROM. He still has feeling of stiffness but is ed. on modalities to decrease stiffness. Pt has initiated a UB PRE, and has returned to his woodworking. pt agrees with d/c d/c sentence: If there are questions or concerns regarding this patient's occupational therapy, please fell free to call me at [phone]. Thank you for the referral of this patient. Sincerely, Lyudmila Sanchez, OTR/L, CHT
== END 2025-04-27 19:00 | disposition home or self-care (01) ==
LOC: OT 08:00
PROVIDERS: PCP Preventive Medicine Occupational Medicine
DX: S62.353D Nondisplaced fracture of shaft of third metacarpal bone, left hand, subsequent encounter for fracture with routine healing (principal); S62.325D Displaced fracture of shaft of fourth metacarpal bone, left hand, subsequent encounter for fracture with routine healing; S62.347D Nondisplaced fracture of base of fifth metacarpal bone, left hand, subsequent encounter for fracture with routine healing
CPT/HCPCS: 97035; 97110; 97140; 97166; 97530